=== PATIENT | male | born 1990 | race African-American/Black ===

== ENCOUNTER 2016-09-21 18:52 | Emergency (ER) | payer OTHER ==
[~2016-09-21] VITALS: Ht 193 cm; Wt 83.9 kg
== END 2016-09-21 19:29 | disposition home or self-care (01) ==
LOC: CFTX 18:52 → CED 18:52 → CFTX 19:27
DX: S50.811A Abrasion of right forearm, initial encounter (principal); F17.200 Nicotine dependence, unspecified, uncomplicated; Z23 Encounter for immunization; X58.XXXA Exposure to other specified factors, initial encounter
CPT/HCPCS: 90471; 90715; 99283